=== PATIENT | female | born 1965 | race Caucasian/White ===

== ENCOUNTER → 2017-02-07 | Outpatient (CLI) | payer OTHER ==
[~2017-02-07] MED LIST: AUGMENTIN 875-1 EACH PO; COLACE100 MG PO; CPAP INH; DILAUDID 2MG(HYD2 MG PO; EFFEXOR XR75 MG PO; FEOSOL325 MG PO; HYDRODIURIL25 MG PO; IPRATROPIU0.2 MG/1 M INH; K-TAB 10MEQ10 MEQ PO; KLONOPIN0.5 MG PO; LOTENSIN40 MG PO; MIRALAX17 GM PO; MIRAPEX1 MG PO; MOBIC15 MG PO; NEURONTIN300 MG PO; NEURONTIN800 MG PO; OXYCONTIN EXTEN10 MG PO; REQUIP5 MG PO; SKELAXIN800 MG PO; TYLENOL EXTRA500 MG PO; ULTRAM50 MG PO; VALIUM5 MG PO; XARELTO10 MG PO
== END | disposition disaster alternative care site (69) ==
LOC: GRAD 06:37
DX: R10.2 Pelvic and perineal pain (principal); R10.9 Unspecified abdominal pain; R31.9 Hematuria, unspecified; N28.9 Disorder of kidney and ureter, unspecified; N83.201 Unspecified ovarian cyst, right side; Z90.49 Acquired absence of other specified parts of digestive tract; Z90.710 Acquired absence of both cervix and uterus
CPT/HCPCS: Q9967

== ENCOUNTER → 2017-02-17 | Day surgery (SDC) | payer OTHER ==
[~2017-02-17] VITALS: Ht 160 cm; Wt 114.0 kg
--- NOTE | ~2017-02-17 | OR ---
PATIENT'S NAME: LILLIAM THOMAS [facility] AGE: 51 Y [address] ROOM: [place] [id number] LOCATION: GEND ADMIT DATE: 02/17/2017 OR/Procedure Report DISCHARGE DATE: FAMILY PHYSICIAN: YESSICA RICHARD MD ATTENDING PHYSICIAN: YANA CHRISTIAN SURGEON: Yana Christian MD DYNO TECHNICIAN: DATE OF PROCEDURE: 02/17/2017 ADDENDUM: INDICATION: Abdominal pain and diarrhea. YANA CHRISTIAN MD AM/modl /[id number] d: 03/13/17 1334 t: 03/14/17 0816, OPERATIVE SUMMARY
== END | disposition disaster alternative care site (69) ==
LOC: GPOC 02-10 10:00 → GEND 07:30 → GPOC 10:00
PROC: 0DBP8ZX Excision of Rectum, Via Natural or Artificial Opening Endoscopic, Diagnostic (ICD-10-PCS; principal; 2017-02-17)
PROC: 0DBG8ZX Excision of Left Large Intestine, Via Natural or Artificial Opening Endoscopic, Diagnostic (ICD-10-PCS; 2017-02-17)
PROC: 0DBN8ZX Excision of Sigmoid Colon, Via Natural or Artificial Opening Endoscopic, Diagnostic (ICD-10-PCS; 2017-02-17)
DX: Z12.11 Encounter for screening for malignant neoplasm of colon (principal); D12.5 Benign neoplasm of sigmoid colon; K57.30 Diverticulosis of large intestine without perforation or abscess without bleeding; K62.1 Rectal polyp; I10 Essential (primary) hypertension; E78.5 Hyperlipidemia, unspecified; E61.1 Iron deficiency; G47.33 Obstructive sleep apnea (adult) (pediatric); I27.2 Other secondary pulmonary hypertension; G25.81 Restless legs syndrome; E55.9 Vitamin D deficiency, unspecified; Z79.899 Other long term (current) drug therapy; Z86.59 Personal history of other mental and behavioral disorders; Z90.49 Acquired absence of other specified parts of digestive tract; Z90.710 Acquired absence of both cervix and uterus; Z98.890 Other specified postprocedural states
CPT/HCPCS: J2001; J7030

== ENCOUNTER → 2017-07-10 | Outpatient (CLI) | payer OTHER | LOC: GBCOE 13:44 | DX: Z12.31 Encounter for screening mammogram for malignant neoplasm of breast (principal); Z00.00 Encounter for general adult medical examination without abnormal findings; N28.1 Cyst of kidney, acquired; R31.9 Hematuria, unspecified | CPT/HCPCS: G0202 ==

== ENCOUNTER → 2017-07-29 | Outpatient (CLI) | payer OTHER | END | disposition disaster alternative care site (69) | LOC: GRAD 10:00 | DX: N28.1 Cyst of kidney, acquired (principal); N28.9 Disorder of kidney and ureter, unspecified; Z87.448 Personal history of other diseases of urinary system ==